=== PATIENT | female | born 1990 | race African-American/Black ===

== ENCOUNTER 2016-10-16 08:51 | Emergency (ER) | payer SELFPAY ==
[2016-10-16] MEDS ORDERED: Lidocaine 1% 20 ML MDV ONE (09:11)
[2016-10-16] MEDS ORDERED: Sulfameth/Trimethoprim DS 800-160mg TAB ONE (09:24)
--- NOTE | 2016-10-16 09:33 | ERRECORD ---
[facility] EMERGENCY RECORD HPI ABSCESS (09:24 JLOY) CHIEF COMPLAINT: Patient presents for evaluation of swelling, Patient presents for evaluation of pain, Patient presents for evaluation of Left axillary swelling x2 days. History of abscess in the area that self resolved. HISTORIAN: History provided by patient. LOCATION: Symptoms are localized. QUALITY: Pain is dull in nature. TIME COURSE: Gradual onset of symptoms, Symptoms are worsening. ASSOCIATED WITH: No associated chills, No associated drainage, No associated fever, No associated nausea, No associated proximal streaking, No associated warmth. COMPLICATING FACTORS: Complicating factors for wound healing include:, patient with history of diabetes. EXACERBATED BY: Patient's condition exacerbated by nothing. RELIEVED BY: Patient's condition relieved by nothing. TETANUS: Tetanus status up to date. ROS (09:25 JLOY) CONSTITUTIONAL: Historian denies chills, denies fever. GI: Historian denies nausea, denies vomiting. SKIN: Historian reports induration. PAST MEDICAL HISTORY MEDICAL HISTORY: Flu vaccine not up to date, Tetanus immunization up to date, Pneumococcal vaccine not up to date, Past medical history includes history of diabetes, on insulin, Age of onset: age 14 diagnosed. (08:59 JPAR) FEMALE SURGICAL HISTORY: Surgical history of section, Notes: X2. (08:59 JPAR) PSYCHIATRIC HISTORY: Notes: Major Depression. (08:59 JPAR) SOCIAL HISTORY: Patient drinks socially, rarely, Patient denies drug use, Patient has no smoking history. (08:59 JPAR) NOTES: Nursing records reviewed, Agree with nursing records. (09:26 JLOY) KNOWN ALLERGIES No Known Drug Allergies CURRENT MEDICATIONS HumaLOG: VIAL (ML) : Strength - 100 unit/mL : SUBCUTANEOUS Patient Dose: 10 units Subcutaneous 3 times a day (with meals). (Sat Oct 16, 2016 08:56 JPAR) Levemir Flexpen: INSULIN PEN (ML) : Strength - 100 unit/mL (3 mL) : SUBCUTANEOUS Patient Dose: 22 units Subcutaneous once a day. (08:57 JPAR) &a-1R&a+25V*p+0X*y7681V*c202B*c15G*c2P*p-0X&a-25V&a+1R Name: Dinah St : 1990 F26 MedRec: [id number] AcctNum: [id number] Prepared: Sat Oct 16, 2016 09:44 by Interface Page 1 of 2 pMD [facility] EMERGENCY RECORD VITAL SIGNS (08:57 ALDO) VITAL SIGNS: BP: 140/87, Pulse: 95, Resp: 15, Temp: 97.3 (Oral), Pain: 7, O2 sat: 99 on Room Air, Time: 10/16/2016 08:57. PHYSICAL EXAM (09:25 [facility]) CONSTITUTIONAL: Vital signs reviewed, Patient appears non toxic, Patient alert and oriented to person, place and time. EYES: Eye exam included findings of eyelids normal to inspection, Pupils equally round and reactive to light, Conjunctiva normal. RESPIRATORY CHEST: Respiratory exam included findings of no respiratory distress, Chest exam included findings of chest movement symmetrical. NEURO: [place] coma scale 15, Neuro exam findings include patient oriented to person, place and time, Speech normal. SKIN: Skin exam included findings of skin warm, dry, and normal in color, left axillary fluctuant mass 1x2 cm. No erythema. Mild ttp. No warmth. PSYCHIATRIC: Normal affect. MEDICATION ADMINISTRATION SUMMARY Drug Name: Bactrim DS, Dose Ordered: 1 tab(s), Route: Oral, Status: Given, Time: 09:30 10/16/2016, Detailed record available in Medication Service section. PROBLEM LIST No recorded problems DIAGNOSIS (09:24 JL) FINAL: PRIMARY: CELLULITIS UNSPECIFIED. PRESCRIPTION (09:23 [facility]) Bactrim DS: TABLET : 800 mg-160 mg : ORAL : Quantity: 1 Unit: tab(s) Route: ORAL Schedule: 2 times a day Dispense: 20 May substitute. Refills: No Refills . NOTES: No Refills. DISPOSITION PATIENT: Disposition Type: Discharge, Disposition: *Discharge Home. (09:24 OLINDA) Patient left the department. (09:37 ALDO) Zarate: OLINDA=MD Urban, Bertrand CARLSON=REINA Farrell, Jose &a-1R&a+25V*p+0X*x3530K*c202B*c15G*c2P*p-0X&a-25V&a+1R Name: Dinah St : 1990 F26 MedRec: [id number] AcctNum: [id number] Prepared: [place] Oct 16, 2016 09:44 by Interface Page 2 of 2 pMD MTDD
--- NOTE | 2016-10-16 09:39 | PICIS ---
[facility] EMERGENCY RECORD TRIAGE (Sat Oct 16, 2016 08:56 JPAR) TRIAGE NOTES: Abscess L axilla, noticed yesterday, had one same place 2 weeks ago that drained on its own. (Sat Oct 16, 2016 08:56 JPAR) PATIENT: AGE: 26, GENDER: female, : Tue1990, TIME OF GREET: TueOct 16, 2016 08:52, PREFERRED LANGUAGE: [place]ar[place]uan, ETHNICITY: Not or , ECODE BILLING MAP: [facility], SSN: [id number], Zip Code: [address], KG WEIGHT: 66.68, PHONE: , , , PERSON ID: [id number], PCP: [facility] (Sat Oct 16, 2016 08:56 JPAR) NAME: Dinah St (09:32) COMPLAINT: ABSCESS UNDER LEFT ARM. (Sat Oct 16, 2016 08:56 JPAR) ADMISSION: URGENCY: 4 Non Urgent, ADMISSION SOURCE: Home, TRANSPORT: CAR, BED: TRIAGE. (Sat Oct 16, 2016 08:56 JPAR) ASSESSMENT: Assessment: Abscess L axilla, Symptoms began yesteray, Symptoms began yesterday. (08:59 JPAR) PAIN: Patient complains of pain described as, aching, on a scale 0-10 patient rates pain as 7. (08:59 JPAR) SIRS SCORING: Heart Rate 55-109 (0), Temp range 96.8-101.1 (0), respiratory rate 12-24 (0), Mental Status altered: no (0), Infection or Suspected Infection: No. (08:59 JPAR) TRIAGE SCREENING: Patient denies suicidal ideation, Patient denies presence of domestic violence. (08:59 JPAR) PROVIDERS: TRIAGE NURSE: Jose Farrell RN. (Sat Oct 16, 2016 08:56 JPAR) VITAL SIGNS: BP 140/87, Pulse 95, Resp 15, Temp 97.3, (Oral), Pain 7, O2 Sat 99, on Room Air, Time 10/16/2016 08:57. (08:57 JPAR) PREVIOUS VISIT ALLERGIES: No Known Drug Allergies. (Sat Oct 16, 2016 08:56 JPAR) No Known Drug Allergies. (08:59 JPAR) KNOWN ALLERGIES No Known Drug Allergies CURRENT MEDICATIONS HumaLOG: VIAL (ML) : Strength - 100 unit/mL : SUBCUTANEOUS Patient Dose: 10 units Subcutaneous 3 times a day (with meals). (Sat Oct 16, 2016 08:56 JPAR) Levemir Flexpen: INSULIN PEN (ML) : Strength - 100 unit/mL (3 mL) : SUBCUTANEOUS Patient Dose: 22 units Subcutaneous once a day. (08:57 JPAR) VITAL SIGNS (08:57 JPAR) VITAL SIGNS: BP: 140/87, Pulse: 95, Resp: 15, Temp: 97.3 (Oral), Pain: 7, O2 sat: 99 on Room Air, Time: 10/16/2016 08:57. &a-1R&a+25V*p+0X*m1340T*c202B*c15G*c2P*p-0X&a-25V&a+1R Name: Dinah St : 1990 F26 MedRec: [id number] AcctNum: [id number] Prepared: Sat Oct 16, 2016 09:50 by Interface Page 1 of 6 pMD [facility] EMERGENCY RECORD NURSING ASSESSMENT: SKIN (08:56 JPAR) CONSTITUTIONAL: Patient arrives ambulatory, Gait steady, History obtained from patient, Patient appears comfortable, Patient cooperative, Patient alert, Oriented to person, place and time, Skin warm, Skin dry, Skin normal in color, Mucous membranes pink, Mucous membranes moist, Patient complains of Abscess L Axilla, noticed it yesterday, pt stated she had one in the same spot 2 weeks ago. PAIN: aching pain, Onset of pain yesterday, constant, on a scale 0-10 patient rates pain as 7. SKIN: Skin assessment findings include skin warm, Skin dry, Skin normal in color, Inspection findings include redness, to L axilla, Inspection findings include swelling, to L axilla abscess 1.5cm X 2cm. SAFETY: Side rails up, Cart/Stretcher in lowest position, Call light within reach, Hospital ID band on. NURSING PROCEDURE: DISCHARGE NOTE (09:33 JPAR) DISCHARGE: Patient discharged to home, ambulating without assistance, driving self, unaccompanied, Summary of Care printed/ provided, Patient requested and was provided an electronic copy of Discharge Instructions, Transition record given to patient, Discharge instructions given to patient, Simple or moderate discharge teaching performed, Increase fluid intake while on antibiotics, take with food on stomach to prevent gastric irritation., Prescriptions given and instructions on side effects given, Name of prescription(s) given: Bactrim DS, Medication reconciliation form given, Above person(s) verbalized understanding of discharge instructions and follow-up care, Patient treated and evaluated by physician. BELONGINGS: Belongings and valuables with patient at time of discharge include:, Belongings remain with patient, Valuables remain with patient. SAFETY: Side rails up, Cart/Stretcher in lowest position, Call light within reach, Hospital ID band on. NURSING PROCEDURE: INCISION AND DRAINAGE (09:14 JPAR) PATIENT IDENTIFIER: Patient actively involved in identification process, Patient's identity verified by patient stating name, Patient's identity verified by patient stating date, Patient's identity verified by hospital ID bracelet, Patient's identity verified by family member. TIMEOUT: Prior to procedure, correct patient verified by, Correct procedure verified, Correct site verified, Correct equipment utilized, Timeout not performed due to emergent nature of procedure. I & D: Incision and drainage indicated to promote healing, Incision and drainage indicated for pain control, Incision and drainage performed to the left axilla, small amount, of purulent fluid drained, Wound culture labeled in the presence of the patient and sent to lab, Wound culture labeled in the &a-1R&a+25V*p+0X*h4781N*c202B*c15G*c2P*p-0X&a-25V&a+1R Name: Dinah St : 1990 F26 MedRec: [id number] AcctNum: [id number] Prepared: Sat Oct 16, 2016 09:50 by Interface Page 2 of 6 pMD [facility] EMERGENC[facility] RECORD presence of the patient and sent to lab. FOLLOW-UP: After procedure, patient rates pain as 2 out of 10. SAFETY: Side rails up, Cart/Stretcher in lowest position, Call light within reach, Hospital ID band on. NURSING PROCEDURE: WOUND CARE (09:14 JPAR) PATIENT IDENTIFIER: Patient actively involved in identification process, Patient's identity verified by patient stating name, Patient's identity verified by patient stating date, Patient's identity verified by hospital ID trevon, Patient's identity verified by family member. TIMEOUT: Prior to procedure, correct patient verified by, Correct procedure verified, Correct site verified, Correct equipment utilized, Timeout not performed due to emergent nature of procedure. WOUND CARE: Wound care indicated for wound debridement and cleansing, Wound care indicated for preparing wound for repair, Wound care indicated to promote healing, Wound site: L Axilla, Cause of wound: Abscess, Local infiltration with, 1% lidocaine without epinephrine, 8 ml used, Wound irrigated with 250 mL of normal saline, Wound cleansed with Betadine, Wound culture labeled in the presence of the patient and sent to lab, Last tetanus shot received less than 5 years ago, Notes: Small amount of purelent drainage following I&D. FOLLOW-UP: After procedure, simple dressing applied, using 4x4 dressing, wrapped with 2 inch mercedes, After procedure, capillary refill less than 2 seconds, After procedure, distal circulation intact, After procedure, distal motor intact, After procedure, distal sensation intact, After procedure, distal pulses present. SAFETY: Side rails up, Cart/Stretcher in lowest position, Family at bedside, Call light within reach, Hospital ID band on. ORDER DETAILS Order Name: chart element #1, Status: Active, Time: 09:14 10/16/2016, User: System, - Ordered for: MD Duggan Joshua, - Entered by: REINA Farrell Jason - Sat Oct 16, 2016 09:14, - Quantity: 1, Order Name: chart element #1, Status: Active, Time: 09:14 10/16/2016, User: System, - Ordered for: MD Duggan Joshua, - Entered by: REINA Farrell Jason - Sat Oct 16, 2016 09:14, - Quantity: 1, Order Name: chart element #4, Status: Active, Time: 09:14 10/16/2016, User: System, - Ordered for: MD Duggan Joshua, - Entered by: REINA Farrell Jason - Sat Oct 16, 2016 09:14, - Quantity: 1, Order Name: chart element #4, Status: Active, Time: 09:14 10/16/2016, &a-1R&a+25V*p+0X*s4347Z*c202B*c15G*c2P*p-0X&a-25V&a+1R Name: Dinah St : 1990 F26 MedRec: [id number] AcctNum: [id number] Prepared: Sat Oct 16, 2016 09:50 by Interface Page 3 of 6 pMD [facility] EMERGENC[facility] RECORD User: System, - Ordered for: MD Duggan Joshua, - Entered by: REINA Farrell Jason - [facility] Oct 16, 2016 09:14, - Quantity: 1, Order Name: Culture & GS, Bacterial/Wound, Status: Active, Time: 09:22 10/16/2016, User: OLINDA, - Ordered for: MD Duggan Joshua, - Entered by: MD Duggna Joshua - [facility] Oct 16, 2016 09:22, - Quantity: 1. MEDICATION ADMINISTRATION SUMMARY Drug Name: Bactrim DS, Dose Ordered: 1 tab(s), Route: Oral, Status: Given, Time: 09:30 10/16/2016, Detailed record available in Medication Service section. MEDICATION SERVICE (09:30 [facility]) Bactrim DS: Order: Bactrim DS (sulfamethoxazole/trimethoprim) - Dose: 1 tab(s) : Oral Ordered by: Bertrand Duggan MD Entered by: Bertrand Duggan MD [facility] Oct 16, 2016 09:22 , Acknowledged by: Jose Farrell RN [facility] Oct 16, 2016 09:23 Documented as given by: Jose Farrell RN [facility] Oct 16, 2016 09:30 Patient, Medication, Dose, Route and Time verified prior to administration. Patient appears Awake and alert- acceptable, Correct patient, time, route, dose and medication confirmed prior to administration, Patient advised of actions and side-effects prior to administration, Allergies confirmed and medications reviewed prior to administration, Patient in position of comfort, Side rails up, Cart in lowest position, Call light in reach. HPI ABSCESS (09:24 [facility]) CHIEF COMPLAINT: Patient presents for evaluation of swelling, Patient presents for evaluation of pain, Patient presents for evaluation of Left axillary swelling x2 days. History of abscess in the area that self resolved. HISTORIAN: History provided by patient. LOCATION: Symptoms are localized. QUALITY: Pain is dull in nature. TIME COURSE: Gradual onset of symptoms, Symptoms are worsening. ASSOCIATED WITH: No associated chills, No associated drainage, No associated fever, No associated nausea, No associated proximal streaking, No associated warmth. COMPLICATING FACTORS: Complicating factors for wound healing include:, patient with history of diabetes. EXACERBATED BY: Patient's condition exacerbated by nothing. RELIEVED BY: Patient's condition relieved by nothing. TETANUS: Tetanus status up to date. &a-1R&a+25V*p+0X*o4092C*c202B*c15G*c2P*p-0X&a-25V&a+1R Name: Dinah St : 1990 F26 MedRec: [id number] AcctNum: [id number] Prepared: Sat Oct 16, 2016 09:50 by Interface Page 4 of 6 pMD [facility] EMERGENCY RECORD ROS (09:25 JLOY) CONSTITUTIONAL: Historian denies chills, denies fever. GI: Historian denies nausea, denies vomiting. SKIN: Historian reports induration. PAST MEDICAL HISTORY MEDICAL HISTORY: Flu vaccine not up to date, Tetanus immunization up to date, Pneumococcal vaccine not up to date, Past medical history includes history of diabetes, on insulin, Age of onset: age 14 diagnosed. (08:59 JPAR) FEMALE SURGICAL HISTORY: Surgical history of section, Notes: X2. (08:59 JPAR) PSYCHIATRIC HISTORY: Notes: Major Depression. (08:59 JPAR) SOCIAL HISTORY: Patient drinks socially, rarely, Patient denies drug use, Patient has no smoking history. (08:59 JPAR) NOTES: Nursing records reviewed, Agree with nursing records. (09:26 JLOY) PHYSICAL EXAM (09:25 JLOY) CONSTITUTIONAL: Vital signs reviewed, Patient appears non toxic, Patient alert and oriented to person, place and time. EYES: Eye exam included findings of eyelids normal to inspection, Pupils equally round and reactive to light, Conjunctiva normal. RESPIRATORY CHEST: Respiratory exam included findings of no respiratory distress, Chest exam included findings of chest movement symmetrical. NEURO: [place] coma scale 15, Neuro exam findings include patient oriented to person, place and time, Speech normal. SKIN: Skin exam included findings of skin warm, dry, and normal in color, left axillary fluctuant mass 1x2 cm. No erythema. Mild ttp. No warmth. PSYCHIATRIC: Normal affect. EVENTS TRANSFER: Triage to Emergency Triage. (Sat Oct 16, 2016 08:56 JPAR) Emergency Triage to Emergency Room -04. (08:57 JPAR) Removed from Emergency Emergency Room -04. (09:37 JPAR) INCISION AND DRAINAGE (09:26 JLOY) TIMEOUT: Side and/or site verified, Patient identification confirmed, Sterile procedures observed. INCISION AND DRAINAGE: Verbal consent obtained, Incision and drainage indicated for cutaneous abscess, There are no contraindications, 1% Lidocaine without epinephrine used, 4 mLs, Incision was made over area of fluctuance, Explored for loculations, Packed with sterile gauze, Drained pus, Amount (mLs) 5, After procedure, wound dressed, After procedure, neurovascular status &a-1R&a+25V*p+0X*d4634U*c202B*c15G*c2P*p-0X&a-25V&a+1R Name: Dinah St : 1990 F26 MedRec: [id number] AcctNum: [id number] Prepared: Sat Oct 16, 2016 09:50 by Interface Page 5 of 6 pMD [facility] EMERGENCY RECORD normal, There were no complications, Tetanus status up to date, Patient tolerated the procedure well. PROBLEM LIST No recorded problems DIAGNOSIS (09:24 JLOY) FINAL: PRIMARY: CELLULITIS UNSPECIFIED. DISPOSITION PATIENT: Disposition Type: Discharge, Disposition: *Discharge Home. (09:24 JLOY) Patient left the department. (09:37 JPAR) INSTRUCTION (09:24 JLOY) DISCHARGE: ABSCESS, I AND D. FOLLOWUP: [facility], [facility], [address] [place] [address] , , Follow up with Primary Care Physician in 2-3 days. PRESCRIPTION (09:23 JLOY) Bactrim DS: TABLET : 800 mg-160 mg : ORAL : Quantity: 1 Unit: tab(s) Route: ORAL Schedule: 2 times a day Dispense: 20 May substitute. Refills: No Refills . NOTES: No Refills. IMAGING (09:37 JPAR) *SUPPLY CHARGE SHEET: Image captured from scanner. *DISCHARGE INSTRUCTIONS RECEIPT: Image captured from scanner. ADMIN DIGITAL SIGNATURE: MD Duggan Joshua. (09:26 JLOY) REINA Farrell Jason. (09:35 JPAR) REINA Farrell Jason. (09:36 JPAR) Zarate: OLINDA=MD Duggan Joshua JPAR=REINA Farrell Jason &a-1R&a+25V*p+0X*r1685O*c202B*c15G*c2P*p-0X&a-25V&a+1R Name: Dinah St Sabra : 1990 F26 MedRec: [id number] AcctNum: [id number] Prepared: Sat Oct 16, 2016 09:50 by Interface Page 6 of 6 pMD [facility] MEDICATION RECONCILIATION You were seen in the Emergency Department on: Sat Oct 16, 2016 KNOWN ALLERGIES No Known Drug Allergies MEDICATIONS GIVEN WHILE IN THE EMERGENCY DEPARTMENT Bactrim DS (sulfamethoxazole/trimethoprim) - Dose: 1 tab(s) : Oral HOME MEDICATIONS CONTINUE PRESCRIBED HumaLOG : VIAL (ML) : Strength - 100 unit/mL : SUBCUTANEOUS Continue as prescribed Patient had been takin units Subcutaneous 3 times a day (with meals). Levemir Flexpen : INSULIN PEN (ML) : Strength - 100 unit/mL (3 mL) : SUBCUTANEOUS Continue as prescribed Patient had been takin units Subcutaneous once a day. PRESCRIPTIONS (1) &a-1R&a+25V*p+0X*m2086T*c202B*c15G*c2P*p-0X&a-25V&a+1R Name: Dinah St Sabra : 1990 F26 MedRec: [id number] AcctNum: [id number] Prepared: Sat Oct 16, 2016 09:50 by Interface pMD MTDD
== END 2016-10-16 09:33 | disposition home or self-care (01) ==
LOC: NAV ERS 08:51
DX: L03.112 Cellulitis of left axilla (principal); E11.9 Type 2 diabetes mellitus without complications; Z79.4 Long term (current) use of insulin; F32.9 Major depressive disorder, single episode, unspecified
CPT/HCPCS: 10060; 87070; 87077; 87186; 87205; J2001

== ENCOUNTER 2016-11-06 09:01 | Emergency (ER) | payer SELFPAY ==
[2016-11-06 09:26] LABS: Bilirubin Negative (Negative); Blood, Urine Negative (Negative); Glucose, Urine (Dipstick) 500 mg/dL (Negative); Ketone, Urine Negative (Negative); Nitrite Positive (Negative); Protein, Urine (Dipstick) Negative (Neg-Trace)
[2016-11-06 09:32] LABS: Bacteria/HPF 3+ HPF (None Seen); RBC/HPF 0-3 HPF (0-3); WBC/HPF 0-3 HPF (0-3)
[2016-11-06] MEDS ORDERED: Cipro 250 MG TAB ONE (09:38)
== END 2016-11-06 09:48 | disposition home or self-care (01) ==
LOC: NAV ERS 09:01
DX: N39.0 Urinary tract infection, site not specified (principal); F32.9 Major depressive disorder, single episode, unspecified; Z79.4 Long term (current) use of insulin
CPT/HCPCS: 81003; 81015; 81025; 87086; 99283

== ENCOUNTER 2018-02-02 07:29 | Emergency (ER) | payer MEDICAID, SELFPAY | END 2018-02-02 08:08 | disposition home or self-care (01) | LOC: NAV ERS 07:29 | DX: R21 Rash and other nonspecific skin eruption (principal); E10.9 Type 1 diabetes mellitus without complications; F32.9 Major depressive disorder, single episode, unspecified; Z87.891 Personal history of nicotine dependence | CPT/HCPCS: 99282 ==

== ENCOUNTER 2019-07-17 17:25 | Emergency (ER) | payer SELFPAY | END 2019-07-17 18:20 | disposition home or self-care (01) | LOC: NAV ERS 17:25 | DX: R11.2 Nausea with vomiting, unspecified (principal); E10.9 Type 1 diabetes mellitus without complications; F32.9 Major depressive disorder, single episode, unspecified | CPT/HCPCS: 99284 ==

== ENCOUNTER 2020-05-02 06:17 | Emergency (ER) | payer OTHER, SELFPAY ==
[2020-05-02] MEDS ORDERED: Lidocaine Viscous Sol 2% 15 ml UD Cup ONE (06:37)
[2020-05-02] MEDS ORDERED: Ondansetron ODT 4 MG TAB ONE (06:37)
[2020-05-02] MEDS ORDERED: Mag-Al Plus 1200 MG/1200 MG/120 MG/30 ML UDCUP ONE (06:37)
== END 2020-05-02 07:12 | disposition home or self-care (01) ==
LOC: NAV ERS 06:17
DX: K21.0 Gastro-esophageal reflux disease with esophagitis (principal); F32.9 Major depressive disorder, single episode, unspecified; E10.9 Type 1 diabetes mellitus without complications; Z79.4 Long term (current) use of insulin
CPT/HCPCS: 99283; Q0162

== ENCOUNTER 2020-09-02 04:38 | Emergency (ER) | payer OTHER | END 2020-09-02 05:18 | disposition home or self-care (01) | LOC: NAV ERS 04:38 | DX: M79.622 Pain in left upper arm (principal); E10.9 Type 1 diabetes mellitus without complications | CPT/HCPCS: 99281 ==

== ENCOUNTER 2021-05-23 21:12 | Emergency (ER) | payer OTHER ==
[2021-05-25] LABS: SARS-CoV-2 PCR by NAA Not Detected (NotDetected)
== END 2021-05-23 22:30 | disposition home or self-care (01) ==
LOC: NAV ERS 21:12
DX: B34.9 Viral infection, unspecified (principal); E10.9 Type 1 diabetes mellitus without complications; Z20.822 Contact with and (suspected) exposure to COVID-19
CPT/HCPCS: 99283; U0003; U0005

== ENCOUNTER 2021-08-25 12:34 | Emergency (ER) | payer OTHER ==
[2021-08-26 01:30] LABS: SARS-CoV-2 PCR by NAA Not Detected (NotDetected)
== END 2021-08-25 13:55 | disposition home or self-care (01) ==
LOC: NAV ERS 12:34
DX: J01.90 Acute sinusitis, unspecified (principal); E10.9 Type 1 diabetes mellitus without complications; Z20.822 Contact with and (suspected) exposure to COVID-19
CPT/HCPCS: 99284; U0003; U0005